=== PATIENT | female | born 1950 | race Caucasian/White ===

== ENCOUNTER 2023-01-06 19:28 | Emergency (ER) | payer OTHER, MEDICARE, BC ==
[~2023-01-06] VITALS: Ht 157.5 cm; Wt 52.2 kg
[2023-01-06 19:37] VITALS: BP 141/74
[2023-01-06] MEDS ORDERED: AMOCLA875 PO (20:30)
== END 2023-01-06 20:54 | disposition home or self-care (01) ==
LOC: ER 19:28
DX: S61.451A Open bite of right hand, initial encounter (principal); W54.0XXA Bitten by dog, initial encounter; L08.9 Local infection of the skin and subcutaneous tissue, unspecified; Z88.2 Allergy status to sulfonamides; Z88.5 Allergy status to narcotic agent
CPT/HCPCS: 73130; 99283-25; A9270